=== PATIENT | male | born 1990 | race Asian ===

== ENCOUNTER 2024-10-06 14:14 | Emergency (ER) | payer MEDICAID, SELFPAY ==
[2024-10-06 14:35] VITALS: BP 120/65; PULSE 109; RESP 20; TEMP 39.3; O2SAT 96; BMI 38.8
--- NOTE | 2024-10-06 14:40 | XR_ITS ---
Examination: PA lateral chest 2 views TECHNIQUE: Upright PA lateral chest 2 views Exam date and time: October 06, 2024 1455 hours INDICATIONS: Coughing fever today. FINDINGS: Normal heart size Reduced inspiratory effort No lobar pneumonia The osseous structures are intact IMPRESSION: No lobar pneumonia
--- NOTE | 2024-10-06 14:42 | PD.EDRME ---
Rapid Medical Screening Exam [facility] Arrival date/time: 10/06/24 14:14 33-year-old male with no known medical history presents to the emergency room with a chief complaint of a headache, chills, fatigue, a rash to his penis, dysuria, fevers x 7 days. Patient states he recently got back from [place] and [place] and his problems have been progressively getting worse. I have greeted and performed a focused initial assessment of this patient. A comprehensive ED assessment and evaluation of the patient, analysis of all test results, and completion of the medical decision making process will be conducted by additional ED providers. Chief Complaint: Dental/Oral/Throat Time Seen by Provider: 10/06/24 14:28 Vital signs: Vital Signs Temperature 102.7 F H 10/06/24 14:35 Pulse Rate 109 H 10/06/24 14:35 Respiratory Rate 20 10/06/24 14:35 Blood Pressure 120/65 10/06/24 14:35 Pulse Oximetry (%) 96 10/06/24 14:35 Oxygen Delivery Method Room Air 10/06/24 14:35 Vital signs reviewed by provider: Yes
[2024-10-06 15:05] LABS: Lactate (Lactic Acid) 1.2 mMol/L (0.4-2.0)
[2024-10-06 15:08] LABS: Basophils # (Auto) 0.1 Thou/mm3 (0.0-0.2); Basophils % (Auto) 1 % (0-2.5); Eosinophils # (Auto) 0.2 Thou/mm3 (0.0-0.5); Eosinophils % (Auto) 1 % (0-10); Hematocrit 44.6 % (41.0-53.0); Hemoglobin 15.2 g/dL (13.5-16.0); Immature Granulocytes % (Auto) 1 % (0-0); Immature Granulocytes Auto 0.13 Thou/mm3 (0.00-0.00); Lymphocytes # (Auto) 1.2 Thou/mm3 (1.0-4.8); Lymphocytes % (Auto) 10 % (10-50); Mean Corpuscular HGB Conc 34.1 g/dl (31.0-37.0); Mean Corpuscular Hemoglobin 29.9 pg (25.0-35.0); Mean Corpuscular Volume 88 fL (80-100); Monocytes # (Auto) 1.4 Thou/mm3 (0.0-0.8); Monocytes % (Auto) 12 % (0-12); Neutrophils # (Auto) 8.4 Thou/mm3 (1.8-7.7); Neutrophils % (Auto) 75 % (37-80); Nucleated Red Blood Cell % 0 /100 WBC (0); Platelet Count 253 Thou/mm3 (140-440); RDW Standard Deviation 40.2 fL (35.1-43.9); Red Blood Count 5.09 Miln/mm3 (4.50-5.90); White Blood Count 11.3 Thou/mm3 (3.8-10.6)
[2024-10-06 15:25] LABS: Alanine Aminotransferase 114 U/L (10-49); Albumin, Serum 4.4 gm/dL (3.5-5.0); Albumin/Globulin Ratio 1.5 (1.2-2.2); Alkaline Phosphatase 74 U/L (46-116); Anion Gap 11 (7-16); Aspartate Amino Transferase 97 U/L (0-34); BUN/Creatinine Ratio 13 Ratio (12-20); Bilirubin,Total 0.5 mg/dL (0.3-1.2); Blood Urea Nitrogen 12 mg/dL (9-23); Calcium 9.1 mg/dL (8.3-10.6); Calcium (Corrected) 9.1 mg/dL (8.5-10.1); Carbon Dioxide 26.6 mMol/L (20.0-31.0); Chloride 103 mMol/L (98-107); Creatinine (Component) 0.9 mg/dL (0.6-1.3); Estimated Creatinine Clearance 141.1 mL/min (>60); Globulin 2.9 gm/dL (2.3-3.5); Glucose 115 mg/dL (74-106); Osmolality,Calculated 281 (275-295); Potassium 3.2 mMol/L (3.4-5.1); Sodium 141 mMol/L (136-145); Total Protein 7.3 gm/dL (5.7-8.2); eGFR > 60 See Note
[2024-10-06 15:29] VITALS: TEMP 39.3
[2024-10-06] MEDS: ACETAMINOPHEN 500 MG TABLET 1000 MG PO (15:29)
[2024-10-06] MEDS: FLUCONAZOLE 150 MG TABLET PO (15:29)
[2024-10-06 15:30] LABS: Collection Type, Urine Clean Catch
[2024-10-06 15:34] LABS: Bilirubin,Urine Negative (Negative); Blood,Urine Negative (Negative); Clarity,Urine Clear (Clear/Hazy); Color,Urine Lt-Yellow (Lt Yel-Yel); Culture Indicated,Urine Not Indicated; Glucose, Urine Negative (Negative); Ketones,Urine Negative (Negative); Leukocyte Esterase,Urine Positive (Negative); Nitrite,Urine Negative (Negative); Protein,Urine Trace (Neg - Trace); RBC,Urine 3 /hpf (0-3); Specific Gravity,Urine 1.021 (1.001-1.035); Squamous Epithelial Cell,Urine < 1 /hpf (0-5); Urobilinogen,Urine Negative mg/dL (0.0-1.0); WBC,Urine 9 /hpf (0-5)
--- NOTE | 2024-10-06 16:09 | PD.EDADULT ---
ED General RME/HPI General Chief complaint: Dental/Oral/Throat Stated complaint: Sore throat, fever, BEATTY, Chills Time Seen by Provider: 10/06/24 14:28 Arrival date/time: 10/06/24 14:14 RME / HPI RME / HPI narrative: 33-year-old male with no known medical history presents to the emergency room with a chief complaint of a headache, chills, fatigue, a rash to his penis, dysuria, fevers x 7 days. Patient states he recently got back from [place] and [place] and his problems have been progressively getting worse. While in [place] patient tested positive for Salmonella typhi. In the triage patient was noted to be febrile 102.7, denies any cough denies any other complaints. Related Data Previous Rx's ?Medication ?Instructions ?Recorded doxycycline hyclate 100 mg capsule 100 mg PO BID #14 caps 10/06/24 ibuprofen 800 mg tablet 800 mg PO TID PRN pain #30 tabs 10/06/24 valacyclovir 1 gram tablet 1,000 mg PO TID #21 tabs 10/06/24 (Valtrex) Allergies Allergy/AdvReac Type Severity Reaction Status Date / Time NKA* Allergy Uncoded 04/02/15 16:57 Review of Systems Review of Systems Narrative Review of Systems: Review of system reviewed and within normal limits except mentioned in HPI ED Exam Narrative Physical exam: VITAL SIGNS: Reviewed. GENERAL APPEARANCE: Alert and interactive, follows commands, no acute distress, HEAD AND FACE: Non-traumatic. ENT: PERRL, pink conjunctivitis, eyelid no trauma, Mucous membrane moist. NECK: Supple, nontender, no nuchal rigidity. CHEST: No tenderness, no crepitus, no paradoxical movement, no retractions. LUNGS: Clear, well ventilated, symmetric, no rales, no wheezing, no ronchi, no stridor, good breath sounds bilaterally. HEART: Regular rate, regular rhythm, no murmur, no gallops. ABDOMEN: Soft, positive bowel sounds, nondistended, no guarding, nontender, no rebound, no masses, RECTAL: Deferred. GENITAL: Multiple genital ulcers noted on the glans penis and prepuce NEUROLOGICAL: Gross motor function intact sensory function intact, Appropriate for age. MUSCULOSKELETAL: low back nontender, full range of motion. EXTREMITIES: Nontender, full range of motion. SKIN: Color pink, dry, no rash, no lacerations, no abrasions, no contusions. LYMPHATICS: Deferred. Course Quality Measures none Orders Category Date Time Status Bedside COVID-19 Antigen Test NOW Care 10/06/24 14:40 Active Bedside Influenza A&B Antigen Test NOW Care 10/06/24 14:40 Active XR chest 2V Stat Exams 10/06/24 14:40 Completed Blood Culture (Lab) Stat Lab 10/06/24 14:50 Received CBC Stat Lab 10/06/24 14:56 Completed CMP [Comprehensive Metabolic Panel] Stat Lab 10/06/24 14:56 Completed Chlamydia/GC/TV - PCR Stat Lab 10/06/24 15:10 Received Herpes Simplex 1 and 2 IgG Ab* Stat Lab 10/06/24 17:43 Received Lactate (Lactic Acid) Stat Lab 10/06/24 14:56 Completed Procalcitonin Stat Lab 10/06/24 14:56 Completed Syphilis Stat Lab 10/06/24 14:56 Completed UA, C/S IF [Urinalysis, C/S if Indicated] Stat Lab 10/06/24 15:10 Completed Acetaminophen Tab [Tylenol ES Tab] Med 10/06/24 14:41 Discontinued 1,000 mg PO X1 ONE Acetaminophen Tab [Tylenol ES Tab] Med 10/06/24 16:12 Discontinued 1,000 mg PO X1 ONE Acetaminophen Tab [Tylenol Tab] Med 10/06/24 14:40 Discontinued 650 mg PO X1 ONE Acyclovir [Zovirax] Med 10/06/24 16:12 Discontinued 800 mg PO X1 ONE Fluconazole [Diflucan] Med 10/06/24 14:40 Discontinued 150 mg PO X1 ONE cefTRIAXone [Rocephin] 1,000 mg Med 10/06/24 16:18 Discontinued Lidocaine 1% 20 ml [Xylocaine 1% 20 ML] 2.1 ml IM X1 cefTRIAXone/D5w 1gm IV premix [Rocephin/D5w 1gm IV Med 10/06/24 16:13 Discontinued premix] 50 ml IV X1 Vital Signs Vital signs: Vital Signs Temperature 102.7 F H 10/06/24 14:35 Pulse Rate 109 H 10/06/24 14:35 Respiratory Rate 20 10/06/24 14:35 Blood Pressure 120/65 10/06/24 14:35 Pulse Oximetry (%) 96 10/06/24 14:35 Oxygen Delivery Method Room Air 10/06/24 14:35 [facility] Patient data External records reviewed:: None Clinical information provided by:: patient Social determinants that could affect healthcare access:: none Patient has the following chronic illnesses:: None How is presenting disease/condition affected by chronic disease/condition?: no chronic disease Evaluation data The following diagnostics were reviewed and interpreted by me:: lab results Lab and/or radiology exams considered but not ordered:: None Interpretation Summary: See results in MDM Medications Medications considered but not ordered:: None Medication administrations:: Medication Administration History Discontinued Medications Acetaminophen (Acetaminophen 325 Mg Tablet) 650 mg PO X1 ONE Stop: 10/06/24 14:41 Last Admin: 10/06/24 15:30 Dose: Not Given Documented By: OA Non-Admin Reason: Discontinued Acetaminophen (Acetaminophen 500 Mg Tablet) 1,000 mg PO X1 ONE Stop: 10/06/24 14:42 Last Admin: 10/06/24 15:29 Dose: 1,000 mg Documented By: OA Acetaminophen (Acetaminophen 500 Mg Tablet) 1,000 mg PO X1 ONE Stop: 10/06/24 16:13 Last Admin: 10/06/24 16:42 Dose: Not Given Documented By: OA Non-Admin Reason: Discontinued Acyclovir (Acyclovir 800 Mg Tablet) 800 mg PO X1 ONE Stop: 10/06/24 16:13 Last Admin: 10/06/24 16:36 Dose: 800 mg Documented By: OA Ceftriaxone Sodium 1,000 mg/ (Lidocaine HCl 2.1 ml) 0 mg IM X1 ONE Stop: 10/06/24 16:19 Last Admin: 10/06/24 16:37 Dose: 2.1 mg Documented By: OA Fluconazole (Fluconazole 150 Mg Tablet) 150 mg PO X1 ONE Stop: 10/06/24 14:41 Last Admin: 10/06/24 15:29 Dose: 150 mg Documented By: OA Ceftriaxone Sodium/Dextrose (Rocephin/D5w 1gm Iv Premix) 50 mls @ 100 mls/hr IV X1 ONE Stop: 10/06/24 16:42 Last Admin: 10/06/24 16:43 Dose: Not Given Documented By: OA Non-Admin Reason: Discontinued Ceftriaxone IM, acyclovir, Tylenol patient was also given Diflucan Consultations Consultation(s) initiated? (list below): No Diagnosis Differential Diagnosis ED Complaint MDM: Genital herpes, UTI, probably secondary to STD, fever Most likely diagnosis given after review of the tests above:: Genital herpes, UTI Admission Indicated Admission indicated?: not indicated Explain why admission is indicated or not indicated:: None Admission Request Was there a request for admission?: No Admission Attestation Admission request attestation: None Disposition Plan Disposition Plan: Discharge Discharge Attestation Discharge Attestation: The patient was given an opportunity to ask questions and understood the discharge instructions. Discharge instructions specifically effects, indications for sooner follow up or return to the emergency department, and the expected course of current diagnosis. Patient condition: Stable Medical Decision Making MDM Narrative MDM Narrative: 33-year-old male with no known medical history presents to the emergency room with a chief complaint of a headache, chills, fatigue, a rash to his penis, dysuria, fevers x 7 days. Patient states he recently got back from [facility] and [place] and his problems have been progressively getting worse. While in [facility] patient tested positive for Salmonella typhi. In the triage patient was noted to be febrile 102.7, denies any cough denies any other complaints. Patient's urinalysis positive for UTI however chlamydia and gonorrhea result is not resulted. Will be probably resulted in 2 days. Negative for syphilis. Patient genital ulcers could be secondary to genital herpes. Pending herpes 1 and 2 results also probably in 2 days. Patient was given ceftriaxone IM, and Valtrex in the emergency room. Was advised to follow-up in 2 days for the results. Patient will be sent home on doxycycline and Valtrex f Differential Diagnosis Differential Diagnosis: Genital herpes, UTI, probably secondary to STD, fever Lab Data 10/06/24 14:56 10/06/24 14:56 Labs: Lab Results 10/06/24 10/06/24 Range/Units 14:56 15:10 WBC 11.3 H (3.8-10.6) Thou/mm3 RBC 5.09 (4.50-5.90) Miln/mm3 Hgb 15.2 (13.5-16.0) g/dL Hct 44.6 (41.0-53.0) % MCV 88 (80-100) fL MCH 29.9 (25.0-35.0) pg MCHC 34.1 (31.0-37.0) g/dl RDW Std Deviation 40.2 (35.1-43.9) fL Plt Count 253 (140-440) Thou/mm3 Neut % (Auto) 75 (37-80) % Lymph % (Auto) 10 (10-50) % Bradley % (Auto) 12 (0-12) % Eos % (Auto) 1 (0-10) % Baso % (Auto) 1 (0-2.5) % Neut # (Auto) 8.4 H (1.8-7.7) Thou/mm3 Lymph # (Auto) 1.2 (1.0-4.8) Thou/mm3 Bradley # (Auto) 1.4 H (0.0-0.8) Thou/mm3 Eos # (Auto) 0.2 (0.0-0.5) Thou/mm3 Baso # (Auto) 0.1 (0.0-0.2) Thou/mm3 Immature Gran # (Auto) 0.13 H (0.00-0.00) Thou/mm3 Absolute Nucleated RBC 0.00 (0.00-0.00) Thou/mm3 Immature Gran % 1 H (0-0) % Nucleated RBC % 0 (0) /100 WBC Sodium 141 (136-145) mMol/L Potassium 3.2 L (3.4-5.1) mMol/L Chloride 103 (98-107) mMol/L Carbon Dioxide 26.6 (20.0-31.0) mMol/L Anion Gap 11 (7-16) BUN 12 (9-23) mg/dL Creatinine 0.9 (0.6-1.3) mg/dL Estim Creat Clear Calc 141.1 (>60) mL/min eGFR > 60 (60 - ) See Note BUN/Creatinine Ratio 13 (12-20) Ratio Glucose 115 H (74-106) mg/dL Calculated Osmolality 281 (275-295) Lactic Acid 1.2 (0.4-2.0) mMol/L Calcium 9.1 (8.3-10.6) mg/dL Corrected Calcium 9.1 (8.5-10.1) mg/dL Total Bilirubin 0.5 (0.3-1.2) mg/dL AST 97 H (0-34) U/L ALT 114 H (10-49) U/L Alkaline Phosphatase 74 (46-116) U/L Total Protein 7.3 (5.7-8.2) gm/dL Albumin 4.4 (3.5-5.0) gm/dL Globulin 2.9 (2.3-3.5) gm/dL Albumin/Globulin Ratio 1.5 (1.2-2.2) Procalcitonin 0.20 (0.0-0.49) ng/ml Ur Collection Type Clean Catch Urine Color Lt-Yellow (Lt Yel-Yel) Urine Clarity Clear (Clear/Hazy) Urine pH 7.0 (5.0-7.0) Ur Specific [place] 1.021 (1.001-1.035) Urine Protein Trace (Neg - Trace) Urine Glucose (UA) Negative (Negative) Urine Ketones Negative (Negative) Urine Blood Negative (Negative) Urine Nitrite Negative (Negative) Urine Bilirubin Negative (Negative) Urine Urobilinogen (Auto) Negative (0.0-1.0) mg/dL Ur Leukocyte Esterase Positive (Negative) Urine RBC 3 (0-3) /hpf Urine WBC 9 H (0-5) /hpf Ur Squamous Epith Cells < 1 (0-5) /hpf Urine Bacteria None (None) Ur Culture Indicated? Not Indicated Syphilis Serology Nonreactive (Nonreactive) Discharge Plan Plan Patient Disposition: HOME (Self Care) Disposition Comment: Stable Prescriptions/Referrals Prescriptions/Med Rec: New valacyclovir [Valtrex] 1 gram tablet 1,000 mg PO TID Qty: 21 0RF doxycycline hyclate 100 mg capsule 100 mg PO BID Qty: 14 0RF ibuprofen 800 mg tablet 800 mg PO TID PRN (Reason: pain) Qty: 30 0RF Referrals: No Primary/Family,Physician [Primary Care Provider] - In 1 week Problem List Clinical Impression: Male genital ulcer, UTI (urinary tract infection) Patient/Caregiver Discharge Instructions Discharge Activity: activity as tolerated Education Materials: Urinary Tract Infections in Men Additional Instructions: Thank you for the opportunity for serving you today. You are stable for discharged . You are advised to: Follow-up with your PCP in 1 to 2 days Return to ED for worsening of symptoms Increase oral fluids Take medication as prescribed You can call back or return to emergency room in 2 days for the results of your other test Print Language: Ukrainian Stand Alone Forms: Aneta Award Info., Patient Portal Info Letter PA/BU[employer]ING [employer]EL [employer]ER Supervising Physician PA/CHRISTIAN Supervising Physician: MD Jose
[2024-10-06] MEDS: ACYCLOVIR 800 MG TABLET PO (16:36)
[2024-10-06] MEDS: cefTRIAXone 1,000 MG, LIDOCAINE 1% 20 ML 2.1 ML IM (16:37)
[2024-10-06 16:56] LABS: Syphilis Nonreactive (Nonreactive)
[2024-10-12 17:50] LABS: HSV1 IgG Type Specific Ab <0.90 INDEX
[2024-10-13 06:40] LABS: HSV2 IgG Type Specific Ab <0.90 INDEX
== END 2024-10-06 19:34 | disposition home or self-care (01) ==
PROVIDERS: Nurse Practitioner Family; Emergency Provider Emergency Medicine
DX: N39.0 Urinary tract infection, site not specified (principal); R21 Rash and other nonspecific skin eruption
CPT/HCPCS: 36415; 71046; 80053; 81001; 83605; 84145; 85025; 86695; 86696; 86780; 87040; 87400; 87491; 87591; 87661; 87811; 99283; J0696; J3490; A9270